=== PATIENT | female | born 1930 | race Caucasian/White ===

== ENCOUNTER 2018-09-20 11:56 | Day surgery (SDC) | payer OTHER ==
[~2018-09-20 11:56] MED LIST: LIDOCAINE 2% (SDV) 5 ML INJ
[2018-09-20] MEDS ORDERED: hydrALAzine 20 MG INJ (16:06)
[2018-09-20] MEDS ORDERED: PROPOFOL 20 ML (16:08)
[2018-09-20] MEDS ORDERED: ONDANSETRON 4 MG INJ (16:43)
== END 2018-09-20 16:47 | disposition home or self-care (01) ==
LOC: GIL 11:56
DX: K92.1 Melena (principal); K29.50 Unspecified chronic gastritis without bleeding; K64.8 Other hemorrhoids; D12.6 Benign neoplasm of colon, unspecified; I10 Essential (primary) hypertension; I25.10 Atherosclerotic heart disease of native coronary artery without angina pectoris; E11.9 Type 2 diabetes mellitus without complications; Z95.0 Presence of cardiac pacemaker; E66.9 Obesity, unspecified; Z68.29 Body mass index [BMI] 29.0-29.9, adult
CPT/HCPCS: 43239; 82962; 88305; 88312